=== PATIENT | female | born 1990 | race Caucasian/White ===

== ENCOUNTER 2019-09-18 13:22 | Emergency (ER) | payer SELFPAY ==
[2019-09-18 13:23] VITALS: BP 152/121; PULSE 90; RESP 18; TEMP 36.1; O2SAT 100; BMI 46.4
--- NOTE | 2019-09-18 13:50 | ED.DCSUM_ITS ---
History of Present Illness Chief Complaint: Cough Informant: Patient Onset: Days Context: Gradual Onset Current Severity: Mild Maximum Severity: Mild Narrative: Patient presents with sinus congestion that started last weekend. Over the past couple of days she has noted fever with mild cough. She did note some blood with her sputum. T-max is been 102 two days ago. Patient denies any chronic lung problems. - Past Medical History (1) Hypertension Status: Chronic Past Medical History - Allergies and Home Meds Allergies/Adverse Reactions: Allergies amoxicillin Allergy (Verified 09/18/19 13:27) Hives WITH MOUTH SORES cefaclor [From Ceclor] Allergy (Verified 09/18/19 13:26) Hives cefixime [From Suprax] Allergy (Verified 09/18/19 13:26) Other acetaminophen [From Percocet] Adverse Reaction (Verified 09/18/19 13:26) Vomiting hydrocodone [From [place]] Adverse Reaction (Verified 09/18/19 13:26) Vomiting oxycodone [From Percocet] Adverse Reaction (Verified 09/18/19 13:26) Vomiting BEE STINGS Allergy (Uncoded 09/18/19 13:26) Unknown RITAN Allergy (Uncoded 09/18/19 13:26) Hives SUPER X Allergy (Uncoded 09/18/19 13:26) Hives Primary Care Physician: [facility] Doctor,Out of [NON-STAFF] - Prior records reviewed: Yes Lives: With Family Smoking Status: Never smoker Review of Systems General: Reports: Fever Eyes: Denies: Visual changes - bilaterally ENT: Denies: Bilateral ear pain Cardiovascular: Denies: Chest pain Respiratory: Reports: Cough, Sputum Gastrointestinal: Denies: Abdominal pain, Nausea, Vomiting, Diarrhea Genitourinary: Denies: Dysuria Skin: Denies: Rash Neurological: Denies: Headache Hematologic: Denies: Easy bruising Allergy: Denies: Uticaria Physical Exam Vital Signs/Narrative: Vital Signs Temp Pulse Resp BP Pulse Ox 09/18/19 13:23 96.9 F L 90 18 152/121 H 100 Inital Vital Signs reviewed: Yes General: Well nourished, Well developed Head: Normocephalic ENT: Moist mucous membranes Neck: Supple Cardiovascular: Regular rate, Regular rhythm Respiratory: No distress, CTA bilaterally Abdomen: Soft, Nontender Extremities: Nontender Skin: Normal color, No rash Neurological: Alert, Oriented x3 Psychological: Normal affect Diagnostic/Tx/Re-eval Chest X-Ray - ED: 2 View, Read by ED Physician, Normal, Heart, Lungs, Mediastinum, No Acute Disease - Medical Decision Making 2 view chest x-ray is unremarkable per my review. This was discussed with the patient. She is outside the window for any influenza treatment so I do not think that changing a flu swab would change our treatment at all. She understands this. She was instructed with supportive care. I believe the blood that she was coughing up was likely from irritation from her sinus drainage. If symptoms worsen or she is any other concerns she is to return for repeat evaluation. ED Disposition - Plan for ED Patient: Disposition: Home or Assisted Living Diagnosis: Viral URI, Hemoptysis Instructions: BRONCHITIS, No Antibiotic (Adult), Hemoptysis Referrals: [facility] Doctor,Out of [NON-STAFF] -
--- NOTE | 2019-09-18 13:58 | RAD_ITS ---
STUDY: X-RAY CHEST REASON FOR EXAM: Female, 28 years old. RIGHT SIDED UPPER CHEST PAIN xFEW DAYS, HEMOPTYSIS xFEW DAYS TECHNIQUE: PA and lateral views of the chest. COMPARISON: None. FINDINGS: The lungs are clear and expanded. There is no demonstrated pleural abnormality. Normal size heart. Normal mediastinum and luis. Normal visualized pulmonary arteries. Normal visualized aortic arch and descending thoracic aorta. Normal visualized thoracic spine. Normal visualized ribs, clavicles, and shoulders. There is no demonstrated abnormality of the visualized soft tissue structures of the upper abdomen. RAD/Chest PA and Lateral IMPRESSION: Normal x-ray examination of the chest. Electronically Signed: Micha Awad, at 14:17 EST , Service support ,
[2019-09-18 14:43] VITALS: PULSE 86; RESP 17; O2SAT 99
== END 2019-09-18 14:44 | disposition home or self-care (01) ==
PROVIDERS: Emergency Provider Emergency Medicine; PCP Physician Assistant Medical; Referring Provider Physician Assistant Medical
DX: J06.9 Acute upper respiratory infection, unspecified (principal); R04.2 Hemoptysis; I10 Essential (primary) hypertension
CPT/HCPCS: 71046; 99282

== ENCOUNTER 2020-07-14 05:24 | Emergency (ER) | payer MEDICAID, SELFPAY ==
[2020-07-14 05:24] VITALS: BP 145/81; PULSE 101; RESP 16; TEMP 36.7; O2SAT 98; BMI 51.5
--- NOTE | 2020-07-14 05:42 | ED.DCSUM_ITS ---
History of Present Illness Informant: Patient - Abdominal Pain/Flank Pain Onset: Hours - 1-2 hrs [employer] Context: Sudden Onset - woke her up from sleep Timing: Continuous Quality: Cramping, Sharp Location: - - across lower abd/pelvis Current Severity: Moderate Maximum Severity: Severe Worsened by: Nothing Relieved by: Nothing - Nausea/Vomiting/Emesis GI Symptom: Nausea - when near-syncopal. Negative for: Vomiting - Diarrhea/Melena/Hematochezia GI Symptom: Negative for: Diarrhea, Melena, Hematochezia Associated Symptoms: Negative for: Dysuria, Frequency, Hematuria, Urgency LMP: last week - has been regular, nothing unusual about last cycle Narrative: Never had pain like this, woke her up from sleep, severe pelvic pain. Nonlateralizing. She had a near syncopal episode associated with it. No radiation of pain into her back or migration. No history of any abdominal surgeries. Sexually active with her significant other. Denies any recent vag inal discharge or suspicion for STD. <Gamaliel Gomez - Last Filed: 07/14/20 07:19> <Sean Hurst - Last Filed: 07/14/20 09:02> Chief Complaint: Abd Pain - Past Medical History (1) Hypertension Status: Chronic <Gamaliel Gomez - Last Filed: 07/14/20 07:19> Past Medical History Smoking Status: Never smoker <Gamaliel Gomez - Last Filed: 07/14/20 07:19> <Sean Hurst - Last Filed: 07/14/20 09:02> - Allergies and Home Meds Allergies/Adverse Reactions: Allergies amoxicillin Allergy (Verified 07/14/20 05:28) Hives WITH MOUTH SORES cefaclor [From Ceclor] Allergy (Verified 07/14/20 05:28) Hives cefixime [From Suprax] Allergy (Verified 07/14/20 05:28) Other acetaminophen [From Percocet] Adverse Reaction (Verified 07/14/20 05:28) Vomiting hydrocodone [From [place]] Adverse Reaction (Verified 07/14/20 05:28) Vomiting oxycodone [From Percocet] Adverse Reaction (Verified 07/14/20 05:28) Vomiting BEE STINGS Allergy (Uncoded 07/14/20 05:28) Unknown RITAN Allergy (Uncoded 07/14/20 05:28) Hives SUPER X Allergy (Uncoded 07/14/20 05:28) Hives Primary Care Physician: Aileen Mendoza PA [Primary Care Provider] - Review of Systems General: Denies: Chills, Fever, Sweats Eyes: Denies: Visual changes - bilaterally, Diplopia ENT: Denies: Rhinorrhea, Sore throat Cardiovascular: Denies: Chest pain, Palpitations Respiratory: Denies: Dyspnea, Cough, Dyspnea on exertion Gastrointestinal: Reports: Abdominal pain. Denies: Vomiting, Diarrhea, Constipation, Melena, Hematochezia Genitourinary: Denies: Dysuria, Hematuria, Frequency Musculoskeletal: Denies: Myalgias, Neck pain, Back pain, Extremity Pain Skin: Denies: Rash, Wounds Neurological: Denies: Headache, Weakness, Numbness <Gamaliel Gomez - Last Filed: 07/14/20 07:19> Physical Exam Vital Signs/Narrative: Vital Signs Temp Pulse Resp BP Pulse Ox 07/14/20 05:24 98.0 F 101 H 16 145/81 H 98 Inital Vital Signs reviewed: Yes General: Well nourished, Well developed, No Acute Distress Head: Normocephalic, Atraumatic Eyes: Perrl, EOMI ENT: Moist mucous membranes, No rhinorrhea Neck: Supple, Nontender Cardiovascular: Regular rate, Regular rhythm, No murmurs Respiratory: No distress, CTA bilaterally, Chest nontender Abdomen: Soft, Nondistended, Normal bowel sounds, Tender - mostly suprapubic; less in lateral pelvis bilaterally. Negative for: Guarding, Rebound tenderness Back: Nontender, Normal Inspection. Negative for: CVA tenderness Extremities: Nontender, No edema Skin: Normal color, No rash Neurological: Alert, Oriented x3, Cranial nerves II-XII grossly intact, Normal Strength, Normal Sensation, Normal Gait Psychological: Normal affect, Normal Mood <Gamaliel Gomez - Last Filed: 07/14/20 07:19> Vital Signs/Narrative: Vital Signs Temp Pulse Resp BP Pulse Ox 07/14/20 05:24 98.0 F 101 H 16 145/81 H 98 <Sean Hurst - Last Filed: 07/14/20 09:02> Diagnostic/Tx/Re-eval Laboratory Results 07/14/20 07/14/20 07/14/20 05:55 05:55 05:55 WBC 8.3 RBC 4.47 Hgb 12.9 Hct 39.0 MCV 87.2 MCH 28.9 MCHC 33.1 RDW Std Deviation 40.3 RDW Coeff of Jerrod 12.8 Plt Count 215 MPV 11.2 Immature Gran % (Auto) 1.100 H Neut % (Auto) 63.1 Lymph % (Auto) 23.1 Emmet % (Auto) 8.6 Eos % (Auto) 3.4 Baso % (Auto) 0.7 Absolute Neuts (auto) 5.2 Absolute Lymphs (auto) 1.92 Nucleated RBC % 0 Sodium Cancelled Potassium Cancelled Chloride Cancelled Carbon Dioxide Cancelled Anion Gap Cancelled BUN Cancelled Creatinine Cancelled Estim Creat Clear Calc Cancelled Est GFR (MDRD) Af Amer Cancelled Est GFR (MDRD) Non-Af Cancelled BUN/Creatinine Ratio Cancelled Glucose Cancelled Calcium Cancelled Serum , Qual Cancelled Urine Color Urine Clarity Urine pH Ur Specific [place] Urine Protein Urine Glucose (UA) Urine Ketones Urine Occult Blood Urine Nitrite Urine Bilirubin Urine Urobilinogen Ur Leukocyte Esterase Urine RBC Urine WBC Ur Squamous Epith Cells Urine Bacteria Urine Mucus Urine Test 07/14/20 07/14/20 07/14/20 06:00 06:00 06:25 WBC RBC Hgb Hct MCV MCH MCHC RDW Std Deviation RDW Coeff of [place] Plt Count MPV Immature Gran % (Auto) Neut % (Auto) Lymph % (Auto) Emmet % (Auto) Eos % (Auto) Baso % (Auto) Absolute Neuts (auto) Absolute Lymphs (auto) Nucleated RBC % Sodium 138 Potassium 4.0 Chloride 108 H Carbon Dioxide 26.0 Anion Gap 4 L BUN 11 Creatinine 0.72 Estim Creat Clear Calc 120.49 Est GFR (MDRD) Af Amer 124 Est GFR (MDRD) Non-Af 102 BUN/Creatinine Ratio 15.4 Glucose 109 H Calcium 8.9 Serum , Qual Urine Color Yellow Urine Clarity Clear Urine pH 5.0 Ur Specific [place] 1.025 Urine Protein 15 H Urine Glucose (UA) Normal Urine Ketones Negative Urine Occult Blood 10 H Urine Nitrite Negative Urine Bilirubin Negative Urine Urobilinogen Normal Ur Leukocyte Esterase 25 H Urine RBC 0-5 SEEN Urine WBC 0-5 SEEN Ur Squamous Epith Cells 0-5 SEEN Urine Bacteria RARE Urine Mucus 0 SEEN Urine Test Negative - Medical Decision Making Labs and are unremarkable, urine shows no infection. Differential includes GI pain, uterine/gynecologic pain including torsed ovary, ruptured or hemorrhagic ovarian cyst, endometriosis, dysfunctional uterine pain, bladder pain/interstitial cystitis. Patient presents late in shift lab technician, just before morning ultrasound personnel arrived, she is amenable to waiting for them to obtain ultrasound to rule out dangerous pathology. She feels better after Toradol. <Gamaliel Gomez - Last Filed: 07/14/20 07:19> Clinical Impression(s) from Imaging Studies Transvaginal US 07/14/20 07:18 IMPRESSION: Mild enlargement of the right ovary. Electronically Signed: Micha Awad, at 8:55 EST , Service support , - Medical Decision Making Pelvic ultrasound demonstrated mild large metal of the right ovary there is a moderate amount of fluid adjacent to the right ovary. No evidence of torsion. At this point patient will be discharged home. I will have her follow-up with her wharf tally clerk at [facility]. Patient is comfortable this plan. <Sean Hurst - Last Filed: 07/14/20 09:02> ED Disposition <Gamaliel Gomez - Last Filed: 07/14/20 07:19> <Sean Hurst - Last Filed: 07/14/20 09:02> - Plan for ED Patient: Disposition: Home or Assisted Living Diagnosis: Pelvic pain Instructions: ED Pelvic Pain [facility], What Are Ovarian Cysts? Referrals: Aileen Mendoza PA [Primary Care Provider] - Additional Instructions: Follow-up with your wharf tally clerk. Return if worsening or concerns.
[2020-07-14 06:03] LABS: Absolute Lymphocyte Count 1.92 X10^3/uL (0.83-4.51); Absolute Neutrophil Count 5.2 X10^3/uL (2.0-7.7); Basophil# 0.06 X10^3/uL; Basophil% 0.7 % (0-1); Eosinophil# 0.28 X10^3/uL; Eosinophils% 3.4 % (0-5); Hemoglobin 12.9 g/dL (12.0-15.0); Lymphocyte # 1.92 X10^3/ul (4.0); Lymphocyte % 23.1 % (19-41); Mean Corp Hgb Conc 33.1 g/dL (32-36); Mean Corpuscular Hgb 28.9 pg (27.0-32.0); Mean Corpuscular Volume 87.2 fL (81-99); Mean Platelet Vol. 11.2 fl (6.2-12.0); Monocyte# 0.71 X10^3/uL; Monocyte% 8.6 % (0-10); NRBC Flagged by Analyzer 0 % (0-5); Neutrophil # 5.24 X10^3/uL (2.7-7.7); Neutrophil % 63.1 % (47-70); Platelet Count 215 K/mm3 (150-450); RBC Distribution Width CV 12.8 % (11.6-14.6); RBC Distribution Width SD 40.3 fl (35.1-43.9); Red Blood Count 4.47 M/mm3 (4.2-5.4); White Blood Count 8.3 K/mm3 (4.4-11.0)
[2020-07-14 06:05] LABS: Mucous, Urine 0 SEEN /hpf (<or=2+)
[2020-07-14] MEDS: Ketorolac 60 MG/2 ML Vial IM (06:05)
[2020-07-14 06:06] LABS: Color, Urine Yellow (Yellow); Glucose, Dipstick Normal (Normal); Ketone-Dipstick Negative (Negative); Leukocyte Esterase-Dipstick 25 /ul (Negative); Nitrite-Dipstick Negative (Negative); Occult Blood-Urine 10 /ul (Negative); Protein-Dipstick 15 mg/dl (Negative); Specific Gravity, Urine 1.025 (1.002-1.030); Urine Bilirubin Dipstick Negative (Negative); Urine Clarity Clear (Clear); Urine Urobilinogen Normal (Normal)
[2020-07-14 06:22] LABS: Red Blood Cells-Urine 0-5 SEEN /hpf (0-5); Squamous Epithelial Cells - UA 0-5 SEEN /hpf (5-10); White Blood Cells 0-5 SEEN /hpf (0-5)
[2020-07-14 06:23] LABS: Bacteria RARE /hpf (None Seen)
[2020-07-14 06:55] LABS: Anion Gap 4 (5-15); BUN 11 mg/dL (7-18); BUN/Creat Ratio 15.4 RATIO (10-20); Calcium,Total 8.9 mg/dL (8.5-10.1); Chloride 108 mmol/L (98-107); Creatinine, Serum 0.72 mg/dL (0.55-1.02); EST Glomerular Filtration Rate 102 mL/min (>60); Est Glom Filt Rate - Afr Amer 124 mL/min (>60); Estimated Creatinine Clearance 120.49 ml/min; Glucose 109 mg/dL (74-106); Sodium Level 138 mmol/L (136-145)
[2020-07-14 07:10] LABS: Internal QC Validated? YES +Cl - CLEAR BKGD; Pregnancy, Urine Negative Negative
--- NOTE | 2020-07-14 07:18 | US_ITS ---
STUDY: ULTRASOUND OF THE FEMALE PELVIS - COMPLETE REASON FOR EXAM: Female, 29 years old. PELVIC PAIN X 1 DAY -- NEG PREG TEST LMP: 07/06/2020. TECHNIQUE: Transvaginal TECHNICAL QUALITY: Adequate. COMPARISON: None. FINDINGS: The uterus is anteverted and is in a midline position. The uterus measures 9.6 cm x 4.9 cm x 4.1 cm. There is a Nabothian cyst of the cervix. The endometrium measures 12 mm in thickness, and is hyperechoic. There is no demonstrated endometrial mass. There is no demonstrated myometrial mass. I.U.D. - The patient does not have an I.U.D. The right ovary is visualized. The right ovary is slightly enlarged and measures 5 cm x 5 cm x 2.3 cm. There is no right ovarian cyst or ovarian mass. There is no visualized right adnexal mass or complex lesion. There is normal arterial and normal venous vascularity. The left ovary is visualized. The left ovary measures 2.9 cm x 3 cm x 3 cm. There is no left ovarian cyst or ovarian mass. There is no visualized left adnexal mass or complex lesion. There is normal arterial and normal venous vascularity. There is a moderate amount of fluid adjacent to the right ovary. US/Transvaginal Non- IMPRESSION: Mild enlargement of the right ovary. Electronically Signed: Micha Awad, at 8:55 EST , Service support ,
== END 2020-07-14 09:11 | disposition home or self-care (01) ==
PROVIDERS: Emergency Provider Emergency Medicine; PCP Physician Assistant Medical
DX: R10.2 Pelvic and perineal pain (principal); I10 Essential (primary) hypertension
CPT/HCPCS: 76830; 80048; 81001; 81025; 85025; 93976; 96372; 99282

== ENCOUNTER 2021-03-02 14:11 | Emergency (ER) | payer MEDICAID, SELFPAY ==
[2021-03-02 14:11] VITALS: BP 162/107; PULSE 92; RESP 15; TEMP 36.4; O2SAT 98; BMI 50.5
--- NOTE | 2021-03-02 14:27 | ED.VIS.LOWEX ---
HPI History of Present Illness Chief Complaint: Lower Extremity Injury Narrative Narrative: Patient inverted her right ankle while walking. She has lateral pain she has no knee pain she has no other injuries. Pain is mild unless she walks it becomes somewhat worse. [facility] Medical History (Updated 03/02/21 @ 14:[address] Michael House MD) Hypertension Home Medications metoprolol succinate 50 mg PO DAILY 07/14/20 [History Last Taken Unknown] ferrous sulfate 325 mg PO BID 03/02/21 [History Last Taken Unknown] levothyroxine 25 mcg PO DAILY 03/02/21 [History Last Taken Unknown] loratadine 10 mg PO DAILY 03/02/21 [History Last Taken Unknown] naproxen [Naprosyn] 500 mg PO BID #14 tab 03/02/21 [Rx Last Taken Unknown] vitamin B complex [B Complex-Vitamin B12] 1 tab PO BID 03/02/21 [History Last Taken Unknown] Allergy/AdvReac Type Severity Reaction Status Date / Time amoxicillin Allergy Hives Verified 03/02/21 14:13 cefaclor [From Ceclor] Allergy Hives Verified 03/02/21 14:13 cefixime [From Suprax] Allergy Other Verified 03/02/21 14:13 acetaminophen [From Percocet] AdvReac Vomiting Verified 03/02/21 14:13 hydrocodone [From [place]] AdvReac Vomiting Verified 03/02/21 14:13 oxycodone [From Percocet] AdvReac Vomiting Verified 03/02/21 14:13 BEE STINGS Allergy Unknown Uncoded 03/02/21 14:13 RITAN Allergy Hives Uncoded 03/02/21 14:13 SUPER X Allergy Hives Uncoded 03/02/21 14:13 Surgical History (Updated 03/02/21 @ 14:20 by Connie Huber) H/O adenoidectomy [place] teeth extracted Social History Smoking Status: Never smoker ROS ROS ED ROS Narrative Past medical history: none Medications: Reviewed Social history: Noncontributory Review of systems: Musculoskeletal: Ankle injury as in HPI Skin: No abrasions or lacerations Neurological: No weakness or paresthesias Hematologic: No easy bleeding or easy bruising EXAM Physical Exam Narrative Exam Narrative: Physical exam General: Patient does not appear in significant distress . Head: Normocephalic, Atraumatic Neck: No C-spine tenderness Cardiovascular: Normal distal pulses Back: Nontender, Normal Inspection. Extremities: Right ankle shows lateral malleolus tenderness and swelling. There is no proximal fibular tenderness. Skin: No abrasions, no lacerations Neurological: Normal strength and sensation Const Vital Signs: 03/02/21 14:11 Temperature 97.6 F L Temperature Source Temporal Pulse Rate 92 Respiratory Rate 15 Blood Pressure 162/107 H Blood Pressure Mean 125 Pulse Ox 98 Oxygen Delivery Method Room Air MDM MDM MDM Narrative Medical decision making narrative: Patient will be placed in an ankle brace and discharged in stable condition Radiography Diagnostic Testing: Right ankle x-ray read by me does not show any fracture. . Discharge Plan Triage Chief Complaint: Lower Extremity Injury ED Provider: Michael House Dx/Rx/DC Orders Clinical Impression: Ankle sprain Instructions: ED Ankle Sprain (Adult) Prescriptions: New naproxen [Naprosyn] 500 mg tablet 500 mg PO BID Qty: 14 RF: 0 No Action metoprolol succinate 50 MG tablet extended release 24 hr 50 mg PO DAILY RF: 0 levothyroxine 25 mcg tablet 25 mcg PO DAILY RF: 0 ferrous sulfate 325 mg (65 mg iron) tablet 325 mg PO BID RF: 0 vitamin B complex [B Complex-Vitamin B12] Tablet 1 tab PO BID RF: 0 loratadine 10 mg tablet 10 mg PO DAILY RF: 0 Primary Care Provider: Aileen Mendoza Referrals: Aileen Mendoza PA [Primary Care Provider] - 3-5 Days
--- NOTE | 2021-03-02 14:40 | RAD_ITS ---
STUDY: X-RAY - RIGHT ANKLE REASON FOR EXAM: Female, 30 years old. RIGHT ANKLE PAIN TECHNIQUE: 3 view(s) of the ankle. COMPARISON: Comparison is made with prior study dated 08/13/2016. FINDINGS: Normal visualized distal tibia and fibula. Normal medial and lateral malleoli. Normal tibiotalar articulation and ankle mortise. Plantar spur. The visualized subtalar, talonavicular, calcaneocuboid and tarsal articulations are normal. The soft tissue structures are unremarkable. RAD/Ankle min 3 Views IMPRESSION: Plantar spur. No acute abnormality is seen. Electronically Signed: Micha Awad MD at 14:58 EDT , Service support ,
[2021-03-02 15:12] VITALS: RESP 16
--- NOTE | 2021-03-02 15:13 | ED.RN ---
REVIEWED D/C INSTRUCTIONS, FOLLOW UP CARE, PRESCRIPTION, AND S/S THAT WOULD WARRANT A RETURN TO THE ED WITH PT. PT VERBALIZED AN UNDERSTANDING AND DENIES FURTHER QUESTIONS FOR THIS RN. PT SKIN P/W/D, RESP EVEN AND UNLABORED, PT A&O X 3, NO DISTRESS NOTED. PT AMBULATED OUT OF ED, GAIT STEADY.
== END 2021-03-02 15:15 | disposition home or self-care (01) ==
LOC: ED 14:48
PROVIDERS: Emergency Provider Emergency Medicine; PCP Physician Assistant Medical
DX: S93.401A Sprain of unspecified ligament of right ankle, initial encounter (principal); I10 Essential (primary) hypertension; Z79.899 Other long term (current) drug therapy; X50.1XXA Overexertion from prolonged static or awkward postures, initial encounter; Y93.01 Activity, walking, marching and hiking; Y92.89 Other specified places as the place of occurrence of the external cause; Y99.8 Other external cause status
CPT/HCPCS: 73610; 99284

== ENCOUNTER 2021-03-09 17:55 | Emergency (ER) | payer MEDICAID, SELFPAY ==
[2021-03-09 17:56] VITALS: BP 166/98; PULSE 90; RESP 15; TEMP 36.5; O2SAT 97; BMI 51.0
--- NOTE | 2021-03-09 18:25 | RAD_ITS ---
STUDY: X-RAY - SACRUM/COCCYX REASON FOR EXAM: Female, 30 years old. Fall, low back pain TECHNIQUE: 3 view(s) of the sacrum and coccyx were obtained. COMPARISON: None. FINDINGS: Lateral view shows a discontinuity/step off of the contour of the lower sacrum. This suggests the possibility of a fracture. This cannot be confirmed on other views. Consider further evaluation with CT scan. Normal bilateral sacroiliac joints. Normal visualized sacral ala. Normal coccygeal segments. The presacral soft tissue structures are unremarkable. RAD/Sacrum-Coccyx min 2 Views IMPRESSION: Cannot exclude fracture across the lower sacrum. This is suggested on the lateral view. CT scan recommended. Electronically Signed: Valentin Booker MD at 19:09 EDT , Service support ,
--- NOTE | 2021-03-09 18:43 | ED.VIS.BACK ---
HPI History of Present Illness Chief Complaint: Back Informant: patient Narrative Narrative: Patient is a 30-year-old female who [facility] to [facility] for [facility] back pain. She states that 2 days ago her dog pulled her down 4 steps. She landed straight on her bottom. She has been having tailbone pain since. She has not gotten any relief with Tylenol, ibuprofen, tramadol. She denies any weakness or loss of sensation in her legs. No saddle anesthesia. It does hurt to have bowel movements. Otherwise no urinary incontinence/retention. She denies abdominal pain. No chest pain or shortness of breath. She not hit her head or lose consciousness. She is on a blood thinning medications. Sitting seems to make her symptoms worse. [facility] Medical History (Updated 03/09/21 @ 20:[address] Vik López ) Hypertension Home Medications metoprolol succinate 50 mg PO DAILY 07/14/20 [History Last Taken Unknown] ferrous sulfate 325 mg PO BID 03/02/21 [History Last Taken Unknown] levothyroxine 25 mcg PO DAILY 03/02/21 [History Last Taken Unknown] loratadine 10 mg PO DAILY 03/02/21 [History Last Taken Unknown] naproxen [Naprosyn] 500 mg PO BID #14 tab 03/02/21 [Rx Last Taken Unknown] vitamin B complex [B Complex-Vitamin B12] 1 tab PO BID 03/02/21 [History Last Taken Unknown] docusate sodium [Colace] 100 mg PO DAILY #7 cap 03/09/21 [Rx Last Taken Unknown] Allergy/AdvReac Type Severity Reaction Status Date / Time amoxicillin Allergy Hives Verified 03/09/21 17:56 cefaclor [From Ceclor] Allergy Hives Verified 03/09/21 17:56 cefixime [From Suprax] Allergy Other Verified 03/09/21 17:56 acetaminophen [From Percocet] AdvReac Vomiting Verified 03/09/21 17:56 hydrocodone [From [place]] AdvReac Vomiting Verified 03/09/21 17:56 oxycodone [From Percocet] AdvReac Vomiting Verified 03/09/21 17:56 BEE STINGS Allergy Unknown Uncoded 03/09/21 17:56 RITAN Allergy Hives Uncoded 03/09/21 17:56 SUPER X Allergy Hives Uncoded 03/09/21 17:56 Surgical History (Updated 03/02/21 @ 14:20 by Connie Huber) H/O adenoidectomy [place] teeth extracted Social History Smoking Status: Never smoker ROS ROS ED Constitutional Constitutional ED: Denies chills or fever(s) Eyes Eyes: Denies change in vision ENT ENT ED: Denies epistaxis or rhinorrhea Cardiovascular Cardiovascular: Denies chest pain Respiratory/Chest Respiratory/Chest: Denies cough, dyspnea or dyspnea on exertion Gastrointestinal Gastrointestinal: Denies abdominal pain, diarrhea, nausea or vomiting Genitourinary Genitourinary ED: Denies dysuria, hematuria or urinary frequency Musculoskeletal Musculoskeletal: Reports back pain; Denies neck pain Integumentary Denies rash Neurologic Neurologic: Denies dizziness, headache(s) or weakness EXAM Physical Exam Narrative Exam Narrative: Patient up walking around without difficulty. Const Vital Signs: 03/09/21 17:56 Temperature 97.7 F L Temperature Source Temporal Pulse Rate 90 Respiratory Rate 15 Blood Pressure 166/98 H Blood Pressure Mean 120 Pulse Ox 97 Oxygen Delivery Method Room Air Positive well nourished and well developed General Appearance ED: well developed and NAD HEENT Reports normocephalic, head/scalp atraumatic and moist mucous membranes Neck supple Chest Wall inspection of chest normal Resp normal respiratory effort and clear to auscultation bilaterally Auscultation: Negative for rales, rhonchi or wheezes Cardio regular rate, regular rhythm and no murmurs GI normal to inspection, nondistended, normoactive bowel sounds and non-tender Palpation: soft; Negative for guarding or rebound tenderness present Back/Spine no CVA tenderness Back/Spine Narrative: Tenderness along the sacrum. No obvious deformity present. No overlying skin changes. Extremity normal to inspection General Extremety ED: Negative for edema or tenderness General Extremity: Negative for edema Neuro no sensory deficits noted Sensorium / Orientation: alert Motor Exam: strength 5/5 throughout Psych mental status grossly normal Skin no rashes or lesions noted MDM MDM MDM Narrative Medical decision making narrative: Patient presents to the ED for sacral pain after falling down 4 steps 2 days ago. On arrival to the ED she is mildly hypertensive otherwise normal vital signs. She has no red flag symptoms for acute surgical spinal emergency. Will check x-rays of the sacrum and lumbar spine. X-ray was interpreted by radiologist. They are concerned about potential sacral fracture and recommended CT scan. This was performed and was negative for acute traumatic finding. This time recommend symptomatic treatment. I will write a prescription for Colace as she does have pain when moving her bowels. Otherwise symptomatic treatment. She is to follow-up with her PCP. Return precautions are reviewed. She understands and is agreeable this plan. All questions answered. Radiography Diagnostic Testing: Radiology Impression Sacrum and Coccyx X-Ray 03/09/21 18:25 IMPRESSION: Cannot exclude fracture across the lower sacrum. This is suggested on the lateral view. CT scan recommended. Electronically Signed: Valentin Booker MD at 19:09 EDT , Service support , Lumbar Spine X-Ray 03/09/21 18:48 IMPRESSION: Normal x-ray examination of the lumbar spine. Electronically Signed: Valentin Booker MD at 19:04 EDT , Service support , Pelvis CT 03/09/21 19:33 IMPRESSION: Normal unenhanced CT of the pelvis. No fractures. Electronically Signed: Valentin Booker MD at 20:05 EDT , Service support , Discharge Plan Triage Chief Complaint: Back ED Provider: Vik López Dx/Rx/DC Orders Clinical Impression: Sacral contusion Instructions: ED Back Contusion Prescriptions: New docusate sodium [Colace] 100 mg capsule 100 mg PO DAILY Qty: 7 RF: 0 No Action metoprolol succinate 50 MG tablet extended release 24 hr 50 mg PO DAILY RF: 0 levothyroxine 25 mcg tablet 25 mcg PO DAILY RF: 0 ferrous sulfate 325 mg (65 mg iron) tablet 325 mg PO BID RF: 0 vitamin B complex [B Complex-Vitamin B12] Tablet 1 tab PO BID RF: 0 loratadine 10 mg tablet 10 mg PO DAILY RF: 0 naproxen [Naprosyn] 500 mg tablet 500 mg PO BID Qty: 14 RF: 0 Primary Care Provider: Aileen Mendoza Referrals: Aileen Mendoza, PA [Primary Care Provider] - 1 Week if not improving Disposition Disposition: Home, Self Care Discharge Date/Time: 03/09/21 20:50
--- NOTE | 2021-03-09 18:48 | RAD_ITS ---
STUDY: X-RAY - LUMBAR SPINE REASON FOR EXAM: Female, 30 years old. Fall, low back pain TECHNIQUE: 4 view(s) of the lumbar spine were obtained. COMPARISON: None FINDINGS: Normal lumbar lordosis. There is no substantial scoliosis. There is a normal alignment of the vertebrae. Normal vertebral bodies and endplates. Normal disc space heights. There is no demonstrated fracture. The soft tissue structures are unremarkable. RAD/L/S Spine Min 4 Views IMPRESSION: Normal x-ray examination of the lumbar spine. Electronically Signed: Valentin Booker MD at 19:04 EDT , Service support ,
--- NOTE | 2021-03-09 19:33 | CT_ITS ---
STUDY: CT PELVIS WITHOUT CONTRAST REASON FOR EXAM: Female, 30 years old. Abnormal XR, eval for sacral fracture RADIATION DOSAGE (If Supplied By Facility): CTDIvol = ( 68.04 ) mGy, DLP = ( 2004.42 ) mGycm TECHNIQUE: Transaxial imaging of the pelvis was performed with oral contrast, and without intravenous administration of contrast material. Individualized dose optimization techniques were used for this CT. COMPARISON: Radiographs of the same day. FINDINGS: Normal urinary bladder. Normal visualized small intestine. Normal visualized colon. There is no pelvic fluid. There is no pelvic mass lesion or lymphadenopathy. Normal visualized pelvic arteries. Normal abdominal wall. Normal osseous structures. Normal appearance of the sacrum. No fractures. CT/Pelvis without IV Contrast IMPRESSION: Normal unenhanced CT of the pelvis. No fractures. Electronically Signed: Valentin Booker MD at 20:05 EDT , Service support ,
== END 2021-03-09 20:50 | disposition home or self-care (01) ==
PROVIDERS: Emergency Provider Emergency Medicine; PCP Physician Assistant Medical
DX: S30.0XXA Contusion of lower back and pelvis, initial encounter (principal); I10 Essential (primary) hypertension; Z79.899 Other long term (current) drug therapy; W10.9XXA Fall (on) (from) unspecified stairs and steps, initial encounter; Y93.K1 Activity, walking an animal; Y92.008 Other place in unspecified non-institutional (private) residence as the place of occurrence of the external cause; Y99.8 Other external cause status
CPT/HCPCS: 72110; 72192; 72220; 99282